=== PATIENT | female | born 1985 | race Caucasian/White ===

== ENCOUNTER → 2022-05-24 14:34 | Outpatient (BNVA) | payer OTHER, BC, SELFPAY | PROVIDERS: Family Provider Registered Nurse; PCP Registered Nurse; Referring Provider Registered Nurse; Visit Provider Nurse Practitioner Family | DX: M25.562 Pain in left knee (principal); M25.572 Pain in left ankle and joints of left foot | CPT/HCPCS: 73560; 73565; 73610 ==

== ENCOUNTER 2023-03-19 14:56 | Emergency (ER) | payer OTHER, BC, SELFPAY ==
[2023-03-19 15:00] VITALS: PULSE 82; TEMP 36.5; O2SAT 100; BMI 36.0
[2023-03-19 15:53] LABS: Basophils # 0.1 10^3/uL (0.0-0.1); Basophils % 0.6 %; Eosinophils # 0.1 10^3/uL (0.0-0.8); Eosinophils % 1.1 %; Hematocrit 34.9 % (37.0-47.0); Hemoglobin 10.6 g/dL (11.5-15.3); Lymphocytes # 2.5 10^3/uL (0.8-4.8); Lymphocytes % 27.2 %; Mean Corpuscular HGB Conc 30.4 g/dL (30.0-36.0); Mean Corpuscular Hemoglobin 23.5 pg (28.0-34.0); Mean Corpuscular Volume 77.2 fl (81-99); Mean Platelet Volume 11.2 fL (7.4-10.4); Monocytes # 0.8 10^3/uL (0.2-0.9); Neutrophils # 5.72 10^3/uL (1.8-7.7); Neutrophils % 61.9 %; Nucleated Red Blood Cells % 0 %; Platelet Count 359 10^3/cmm (130-400); Red Blood Count 4.52 10^6/uL (4.1-5.3); White Blood Count 9.2 10^3/uL (4.0-10.0)
[2023-03-19 16:18] LABS: Alanine Aminotransferase 14 U/L (0-33); Albumin Level 4.2 g/dL (3.5-5.2); Alkaline Phosphatase 93 U/L (35-105); Anion Gap 17.5 (5-19); Aspartate Amino Transferase 15 U/L (0-32); Blood Urea Nitrogen 15 mg/dL (6-20); Carbon Dioxide 22 mmol/L (22-29); Chloride 103 mmol/L (98-107); Globulin 2.7 g/dL (1.3-4.6); Glomerular Filtration Rate 71.3 mL/min (90-130); Glucose 111 mg/dL (65-115); Lipase 59 U/L (13-60); Osmolality Calculated 290 mOsm/kg (285-295); Potassium 3.5 mmol/L (3.5-5.1); Sodium 139 mmol/L (136-145); Total Bilirubin 0.2 mg/dL (0.15-1.2); Total Protein 6.9 g/dL (6.6-8.7)
[2023-03-19 17:33] VITALS: BP 131/86; PULSE 66; TEMP 36.6; O2SAT 100
[2023-03-19 18:30] VITALS: RESP 18
--- NOTE | 2023-03-19 18:37 | USR_ITS ---
PROCEDURE INFORMATION: Exam: US Abdomen, Limited; Right Upper Quadrant Exam date and time: 03/19/2023 7:46 PM Age: 37 years old Clinical indication: Abdominal pain; Patient HX: Ruq pain x 2-3 days. TECHNIQUE: Imaging protocol: Real time ultrasound of the abdomen with image documentation. Limited exam focused on the right upper quadrant. COMPARISON: No relevant prior studies available. FINDINGS: Liver: Unremarkable. Gallbladder: Cholelithiasis without convincing gallbladder wall thickening or pericholecystic fluid. Positive sonographic Leyva's sign, as per the florist helper. This is a nonspecific finding. Biliary ducts: Normal. No stones. No dilation. Pancreas: Unremarkable as visualized. Right kidney: No mass. No definite stones. No hydronephrosis. US/US gall bladder [id number] IMPRESSION: Cholelithiasis without convincing sonographic evidence of acute cholecystitis.
--- NOTE | 2023-03-19 18:49 | ED_ITS ---
HPI - Abdominal Pain General: Chief Complaint: Abdominal Pain Stated Complaint: abd and back pain Time Seen by Provider: 03/19/23 18:34 Source: patient Mode of arrival: ambulatory Limitations: no limitations History of Present Illness: 37-year-old female states she been having abdominal pain since Sunday and is worsened. States epigastric and right upper quadrant does radiate to her back. She states that sharp in nature rates an 8 out of 10 she had 2 episodes of vomiting today she had C-sections no other abdominal surgeries she denies any vaginal bleeding denies any diarrhea constipation. Associated Symptoms: Reports nausea and vomiting; Denies chills, diarrhea, dysuria and fever(s) Review of Systems Const: Denies: fever(s), chills, body aches or change in appetite Eyes: Denies: blurry vision or eye discomfort ENMT: Denies: throat pain or dental pain Card: Denies: chest pain Resp: Denies: dyspnea GI: Reports: abdominal pain, nausea and vomiting; Denies: diarrhea : Denies: dysuria Musc: Denies: neck pain or back pain Skin/Breast: Denies: rash Neuro: Denies: headache(s) Psych: Denies: depression Beck/Lymph: Denies: easy bruising All/Imm: Denies: urticaria PFSH ED 2 PFSH: Surgical History History of dilation and curettage (2006) S/P section (08/31/11) Primary section. Performed by Dr. Malachi Conway [facility] in [place], [place]. S/P section (08/07/14) Repeat section. Performed by Dr. Malachi Conway at [facility] in [place], [place]. Family History Grandmother Breast cancer maternal Family/Other Ovarian cancer maternal aunt Social History Smoking and tobacco status: former smoker Quit status (tobacco): has quit using tobacco Year quit tobacco: 2018 Alcohol intake: never Substance/Drug Use: never Physical Exam Const: COMMON NORMALS: no acute distress, patient oriented x3 and healthy appearing HENMT: COMMON NORMALS: normocephalic and atraumatic HEAD & SCALP: normocephalic and atraumatic Eye: COMMON NORMALS: conjunctivae normal CONJUNCTIVA: Yes conjunctivae normal Neck/C-Spine: COMMON NORMALS: full ROM and supple Chest: COMMONS NORMALS: normal inspection of the chest and normal palpation of entire chest wall Resp: COMMON NORMALS: normal respiratory effort, No retractions, No use of accessory muscles and clear to auscultation bilaterally AUSCULTATION: clear to auscultation bilaterally Cardio: COMMON NORMALS: regular rate, regular rhythm and No murmurs present (Cardio) RATE: regular rate RHYTHM: regular rhythm GI: COMMON NORMALS: Normal to inspection, nondistended, normoactive bowel sounds present, Soft to palpation and no masses PALPATION: Yes Soft to palpation and Yes Tenderness to palpation present (GI) Details: RUQ Extremity: COMMON NORMALS: normal to inspection and full ROM Neuro: COMMON NORMALS: patient oriented x3, moves all extremities and no focal motor deficits Psych: COMMON NORMALS: mental status grossly normal, Normal thought process present and cooperative THOUGHT PROCESS: Normal thought process present Skin: COMMON NORMALS: no rashes or lesions noted and no wounds GENERAL SKIN EXAM: no rashes or lesions noted Course Vital Signs: Vital signs: Vital Signs Temperature 97.8 F 03/19/23 17:33 Pulse Rate 78 03/19/23 20:00 Respiratory Rate 18 03/19/23 20:17 Blood Pressure 131/86 03/19/23 17:33 Pulse Oximetry 98 03/19/23 20:17 Oxygen Delivery Me thod Room Air 03/19/23 17:33 MDM - Abdominal Pain Medical Decision Making Patient presents for abdominal pain likely biliary colic no signs of cholecystitis she feels much improved here after pain meds her exam at discharge is benign no tenderness did speak to Dr. Buchanan she is to follow-up with him we will start her on antibiotics Augmentin along with hydrocodone she is return if worsening she understands agrees to plan. Lab Data 03/19/23 15:32 03/19/23 15:32 Labs/Radiology: Radiology Impressions Gallbladder Ultrasound 03/19/23 18:37 IMPRESSION: Cholelithiasis without convincing sonographic evidence of acute cholecystitis. Laboratory Results WBC 9.2 10^3/uL (4.0-10.0) 03/19/23 15: RBC 4.52 10^6/uL (4.1-5.3) 03/19/23: Hgb 10.6 g/dL (11.5-15.3) L 03/19/23: Hct 34.9 % (37.0-47.0) L 03/19/23: MCV 77.2 fl (81-99) L 03/19/23: MCH 23.5 pg (28.0-34.0) L 03/19/23: MCHC 30.4 g/dL (30.0-36.0) 03/19/23 RDW 15.0 % (12.1-15.1) 03/19/23 Plt Count 359 10^3/cmm (130-400) 03/19/23 MPV 11.2 fL (7.4-10.4) H 03/19/23: Neut % (Auto) 61.9 % 03/19/23: Lymph % (Auto) 27.2 % 03/19/23: [place] % (Auto) 9.0 % 03/19/23: Eos % (Auto) 1.1 % 03/19/23: Baso % (Auto) 0.6 % 03/19/23: Neut # (Auto) 5.72 10^3/uL (1.8-7.7) 03/19/23: Lymph # (Auto) 2.5 10^3/uL (0.8-4.8) 03/19/23: [place] # (Auto) 0.8 10^3/uL (0.2-0.9) 03/19/23: Eos # (Auto) 0.1 10^3/uL (0.0-0.8) 03/19/23: Baso # (Auto) 0.1 10^3/uL (0.0-0.1) 03/19/23: Nucleated RBC % (auto) 0 % 03/19/23: Nucleated RBCs # 0.0 /100WBC 03/19/23: Sodium 139 mmol/L (136-145) 03/19/23 15:32 Potassium 3.5 mmol/L (3.5-5.1) 03/19/23 15:32 Chloride 103 mmol/L (98-107) 03/19/23 15:32 Carbon Dioxide 22 mmol/L (22-29) 03/19/23 15:32 Anion Gap 17.5 (5-19) 03/19/23 15:32 BUN 15 mg/dL (6-20) 03/19/23 15:32 Creatinine 0.9 mg/dL (0.5-0.9) 03/19/23 15:32 GFR Calculation 71.3 mL/min (90-130) L 03/19/23 15:32 Glucose 111 mg/dL (65-115) 03/19/23 15:32 Calculated Osmolality 290 mOsm/kg (285-295) 03/19/23 15:32 Calcium 8.0 mg/dL (8.5-10.5) L 03/19/23 15:32 Total Bilirubin 0.2 mg/dL (0.15-1.2) 03/19/23 15:32 AST 15 U/L (0-32) 03/19/23 15:32 ALT 14 U/L (0-33) 03/19/23 15:32 Alkaline Phosphatase 93 U/L (35-105) 03/19/23 15:32 Total Protein 6.9 g/dL (6.6-8.7) 03/19/23 15:32 Albumin 4.2 g/dL (3.5-5.2) 03/19/23 15:32 Globulin 2.7 g/dL (1.3-4.6) 03/19/23 15:32 Lipase 59 U/L (13-60) 03/19/23 15:32 HCG, Qual Negative (Negative) 03/19/23 15:32 Discharge Plan Discharge Patient Disposition: Home Clinical Impression: Abdominal pain, Cholelithiasis Condition: Stable Prescriptions: New hydrocodone-acetaminophen 5-325 mg tablet 1 tab PO Q6H PRN (Reason: pain) Qty: 14 0RF ondansetron 4 mg tablet,disintegrating 4 mg PO Q6H PRN (Reason: nausea and vomiting) Qty: 14 0RF Augmentin 500-125 mg tablet 1 tab PO BID Qty: 20 0RF No Action Trintellix 20 mg tablet 20 mg PO ONCE Mirena 20 mcg/24 hours (5 yrs) 52 mg intrauterine device 1 device INTRAUTERI ONCE naproxen 500 mg tablet 500 mg PO BID Qty: 60 0RF Discharge Orders: Discharge ED (Routine); Ordered 03/19/23 Ordered By: Vikki Felix Referrals: Gerhard Buchanan DO [Physician] - 1-3 days Virginia Miller FNP [Primary Care Provider] - Discharge Diet: Advance as tolerated Discharge Activity: Resume usual activity Patient Instructions: Biliary Colic (ED), Abdominal Pain (ED), Opioid Safety Coding Level of Care Code ED Transportation Planning Technician for Karl Cabello
[2023-03-19 19:00] VITALS: RESP 16
[2023-03-19 19:39] LABS: HCG, Serum Qual Negative (Negative)
[2023-03-19 20:00] VITALS: PULSE 78; RESP 18; O2SAT 98
[2023-03-19 20:17] VITALS: RESP 18; O2SAT 98
[2023-03-19] MEDS: morphine 4 mg/mL SDV 1 mL IVP (20:17)
[2023-03-19] MEDS: ondansetron 2 mg/ML SDV 2 mL 4 MG IVP (20:17)
[2023-03-19] MEDS: amoxicillin-clav 875-125 mg Tablet 1 TAB PO (21:38)
[2023-03-19] MEDS: HYDROcodone-acetaminophen 5-325 mg Tablet 2 TAB PO (21:38)
--- NOTE | 2023-03-20 11:13 | DCPLANNER ---
Addendum entered by Kalpana Heath 04/18/23 10:19: Patient had a follow up appointment scheduled with general surgery - patient did attend appointment. Addendum entered by Kalpana Heath 03/23/23 10:11: Patient has a follow up appointment scheduled for Monday, April 17, 2023 at 9:[address] Buchanan at general surgery. Original Note: manager union had message to schedule a follow up appointment for patient with general surgery. manager union sent patients information to the front office staff at general surgery. Patients information will be printed and reviewed. Clinic will call patient with appointment information.
== END 2023-03-19 21:39 | disposition home or self-care (01) ==
PROVIDERS: Family Medicine; Emergency Provider Emergency Medicine; PCP Nurse Practitioner Family
DX: K80.20 Calculus of gallbladder without cholecystitis without obstruction (principal); Z87.891 Personal history of nicotine dependence
CPT/HCPCS: 36415; 76705; 80053; 83690; 84703; 85025; 96374; 96375; 99284; J2270; J2405

== ENCOUNTER 2023-05-21 07:54 | Day surgery (SDC) | payer OTHER, BC, SELFPAY ==
[2023-05-18 11:36] VITALS: BMI 36.0
[2023-05-21] VITALS (10 sets, daily range): BP systolic 100–165; BP diastolic 48–90; PULSE 66–76; RESP 10–18; TEMP 36.2–36.4; O2SAT 93–97
[2023-05-21] MEDS: sodium chloride 0.9% 1,000 ML 30 ML IV (08:22)
[2023-05-21 08:30] LABS: OR HCG Qualitative Urine Negative (Negative)
[2023-05-21] MEDS: scopolamine 1.5 Patch 1 PATCH TRANSDERMA (09:40)
[2023-05-21] MEDS: ondansetron 2 mg/ML SDV 2 mL 4 MG IVP ×3 (09:40→13:24)
[2023-05-21] MEDS: diphenhydrAMINE 50 mg/mL SDV 1mL 12.5 MG IVP (09:53)
--- NOTE | 2023-05-21 11:06 | PM.HP ---
Providers/Chief Complaint Primary Care Provider: BLAYNE Recio Chief Complaint: K80.20 History of Present Illness Hedy Phoenix is a 37 year old female Medications/Allergies Home Medications Medication Instructions Recorded Confirmed Last Taken Type levonorgestrel 21 mcg/24 hours (8 1 device intrauterine ONCE 11/06/19 05/18/23 Unknown History yrs) 52 mg intrauterine device (Mirena) bupropion HCl 150 mg tablet,12 hr 150 mg PO DAILY 05/18/23 05/18/23 05/21/23 06:45 History sustained-release (Wellbutrin SR) escitalopram oxalate 20 mg tablet 20 mg PO DAILY 05/18/23 05/18/23 05/21/23 06:45 History (Lexapro) iron 18 mg tablet 65 mg PO DAILY 05/21/23 05/21/23 05/21/23 06:45 History Allergies Allergy/AdvReac Type Severity Reaction Status Date / Time No Known Allergies Allergy Verified 05/18/23 11:31 PFSH Acute PFSH: Surgical History History of dilation and curettage (2006) S/P section (08/31/11) Primary section. Performed by Dr. Malachi Conway [facility] in [place], [place]. S/P section (08/07/14) Repeat section. Performed by Dr. Malachi Conway at [facility] in [place], [place]. Family History Grandmother Breast cancer maternal Family/Other Ovarian cancer maternal aunt Social History Smoking and tobacco status: former smoker Quit status (tobacco): has quit using tobacco Year quit tobacco: 2018 Alcohol intake: never Substance/Drug Use: never Vitals/I&O/Wt Last Vital Signs Temp 97.5 F L 05/21/23 08:11 Pulse 76 05/21/23 08:11 Resp 18 05/21/23 08:11 BP 165/90 05/21/23 08:11 Pulse Ox 97 05/21/23 08:11 O2 Del Method Room Air 05/21/23 08:27 A&P Assessment and plan (1) Symptomatic cholelithiasis: Plan Laparoscopic cholecystectomy The risks and benefits of the procedure, including but not limited to, bleeding, infection, scar, numbness, pain, damage to surrounding structures, damage to common bile duct requiring additional surgery, conversion to an open procedure, were explained to the patient. He is understanding of the risks and wishes to proceed. Attestations Medical Necessity Statement*: Home Coding Level of Care Code Acute Code for [facility] Diagnoses Symptomatic cholelithiasis K80.20
--- NOTE | 2023-05-21 11:28 | P.ANESASSM_ITS ---
Pre-Anesthetic Assessment Height/Weight: Height 1.7 m Weight 104.326 kg Temp Pulse Resp BP Pulse Ox O2 Del Method 97.5 F L 76 18 165/90 97 Room Air 05/21/23 08:11 05/21/23 08:11 05/21/23 08:11 05/21/23 08:11 05/21/23 08:11 05/21/23 08:27 Operation Date: 05/21/23 09:35 Proposed Procedures p [id number] lap marcos K80.20(Not Applicable) - Gerhard Buchanan DO Familial anesthetic complications: none Was Beta Jerman taken within 24 hours: N/A Was Clonidine taken within 24 hours: N/A Last intake: Intake Last Liquid Date 05/20/23 Last Liquid Time 21:00 Last Solid Date 05/20/23 Last Solid Time 19:30 Social No alcohol and No tobacco Exam alert, oriented x 3, clear to auscultation bilaterally and regular rate & rhythm Airway Submandibular: within normal limits Cervical ROM: within normal limits Mallampati: Class II Dentition: full CV/HEM Anemia Metabolic Morbid Obesity Anesthetic Plan ASA status: 2 Anesthesia: General Medications/Allergies Home Medications Medication Instructions Recorded Confirmed Last Taken Type levonorgestrel 21 mcg/24 hours (8 1 device intrauterine ONCE 11/06/19 05/18/23 Unknown History yrs) 52 mg intrauterine device (Mirena) bupropion HCl 150 mg tablet,12 hr 150 mg PO DAILY 05/18/23 05/18/23 05/21/23 06:45 History sustained-release (Wellbutrin SR) escitalopram oxalate 20 mg tablet 20 mg PO DAILY 05/18/23 05/18/23 05/21/23 06:45 History (Lexapro) iron 18 mg tablet 65 mg PO DAILY 05/21/23 05/21/23 05/21/23 06:45 History Allergies Allergy/AdvReac Type Severity Reaction Status Date / Time No Known Allergies Allergy Verified 05/18/23 11:31 Current Medications Generic Name Dose Route Start Last Admin Trade Name Freq PRN Reason Stop Dose Admin Sodium Chloride 1,000 mls @ 30 mls/hr 05/21/23 08:00 05/21/23 08:22 Sodium Chloride 0.9% IV 05/22/23 07:59 30 mls/hr .Q24H MUSA Administration Ondansetron HCl 4 mg 05/21/23 08:00 05/21/23 09:40 Ondansetron 2 Mg/Ml Sdv 2 Ml IVP 4 mg Q5M PRN Administration NAUSEA AND VOMITING PFSH Anesthesia Surgical History History of dilation and curettage (2006) S/P section (08/31/11) Primary section. Performed by Dr. Malachi Conway [facility] in [place], [place]. S/P section (08/07/14) Repeat section. Performed by Dr. Malachi Conway at [facility] in [place], [place]. Family History Grandmother Breast cancer maternal Family/Other Ovarian cancer maternal aunt Social History Smoking and tobacco status: former smoker Quit status (tobacco): has quit using tobacco Year quit tobacco: 2018 Alcohol intake: never Substance/Drug Use: never Data Anesthesia Cardiac Studies: No Data to Display
[2023-05-21] MEDS: ceFAZolin 2,000 MG in sodium chloride 0.9% (plus) 50 ML 100 MG IV (11:52)
[2023-05-21] MEDS: lidocaine-epi 2% 20 mL INJ INJECTION (12:15)
--- NOTE | 2023-05-21 12:33 | P.OP_ITS ---
Operative Report Date of procedure: May 21, 2023 Pre-op diagnosis: Symptomatic cholelithiasis Post-op diagnosis: same Procedure done: Laparoscopic cholecystectomy Implants: None Specimens removed/disposition: Gallbladder Surgeon: Dr. Gerhard Buchanan DO Anesthesia: General Estimated blood loss (mL): 5 Complications: None apparent Brief History: This very pleasant 37-year-old female with symptomatic cholelithiasis. Laparoscopic cholecystectomy was indicated. The risk benefits were explained and documented. Procedure: Patient was wheeled into the operative room and placed on the OR table in a supine position. Abdomen was inspected prepped and draped in usual sterile fashion. Time-out was performed and all present were in agreement. A 15 blade scalp was used to make a stab incision in the left upper quadrant and intra- abdominal insufflation was achieved using a Veress needle. After localizing the tissue incisions were made and a 5 millimeter trocar was placed into the umbilicus as well as 2 in the right upper quadrant. A 12 millimeter trocar was placed in the epigastrium. Gallbladder was grasped and elevated. The triangle of Calot was carefully dissected using blunt dissection and electrocautery until the triangle of Calot clearly identified. The cystic duct was clipped proximally and double clipped distally. The duct was then ligated proximally. The cystic artery was doubly clipped and ligated. The gallbladder was then removed from the liver bed using electrocautery. The gallbladder was removed from the abdomen using an Endo-Catch bag through the epigastric incision. The liver bed was inspected and no bleeding was seen. The abdomen was irrigated and suctioned. All ports removed. Skin was washed and dried. Incisions were closed with 4-0 Monocryl in a subcuticular interrupted fashion. Skin glue was applied. Patient tolerated the procedure well.
[2023-05-21] MEDS: HYDROcodone-acetaminophen 10-325 mg Tablet 1 TAB PO (13:17)
--- NOTE | 2023-05-21 14:31 | ANE.PACU2 ---
Inpatient post-anesthesia follow up: Airway intact: Yes Vital signs: Temperature 97.1 F Pulse Rate 72 Respiratory Rate 18 Blood Pressure 118/78 Pulse Oximetry 94 Oxygen Delivery Me thod Room Air Oxygen Flow Rate 6 Fraction of Inspir ed Oxygen Hydration adequate: Yes Nausea and vomiting: No Pain level: 3 Mental status: Baseline
== END 2023-05-21 14:10 | disposition home or self-care (01) ==
PROVIDERS: Anesthesiology; PCP Nurse Practitioner Family; Visit Provider Surgery
PROC: 0FT44ZZ Resection of Gallbladder, Percutaneous Endoscopic Approach (ICD-10-PCS; CPT 47562; principal; 2023-05-21 09:25)
DX: K80.10 Calculus of gallbladder with chronic cholecystitis without obstruction (principal); Z87.891 Personal history of nicotine dependence; E66.01 Morbid (severe) obesity due to excess calories; Z68.36 Body mass index [BMI] 36.0-36.9, adult
CPT/HCPCS: 47562; 81025; 84703; 88304; J0131; J0690; J1100; J1170; J1200; J2405; J2704; J3010; J3490; J7030

== ENCOUNTER 2024-03-26 06:53 | Outpatient (CLI) | payer OTHER, BC, MEDICAID, SELFPAY ==
--- NOTE | 2024-03-26 07:15 | MRR_ITS ---
PROCEDURE INFORMATION: Exam: MR Left Lower Extremity Other Than Joint Without Contrast; Foot Exam date and time: 03/26/2024 7:17 AM Age: 38 years old Clinical indication: Injury or trauma; Blunt trauma; Left; Injury details: Eval lis franc complex, person fell on foot, PT casted; Additional info: Lisfranc fracture, evaluate lisfranc complex TECHNIQUE: Imaging protocol: Magnetic resonance imaging of the left lower extremity without contrast. Exam focused on the foot. COMPARISON: DX XR foot LT min 3V* [id number] 03/15/2024 4:41 PM FINDINGS: Bones/joints: Nondisplaced chip fracture versus contusion involving the lateral cuboid bone. Redemonstrated comminuted nondisplaced intra-articular fracture of the basilar 4th metatarsal. The metatarsal bases maintain normal relationships with the tarsal bones. LIGAMENTS: Lisfranc ligament: Secondary to limitations related to patient motion artifact and large field of view, there is suboptimal visualization of the Lisfranc ligament complex. Best seen on coronal and axial views, the plantar, dorsal and interosseous components of the Lisfranc ligament are probably intact but demonstrate prominent abnormal intrasubstance signal suggestive of sprains. There is equivocal /minimal diastasis (2.5 mm) between the 1st and 2nd metatarsal base. Findings are compatible with grade 1 Lisfranc injury/sprain of the Lisfranc ligament complex. TENDONS: Flexor tendons of foot: Unremarkable. No evidence of tear. Tibialis posterior tendon: Unremarkable as visualized. Peroneal tendons: Unremarkable as visualized. Extensor tendons of foot: Unremarkable. No evidence of tear. Tibialis anterior tendon: Unremarkable as visualized. Tarsal canal (Sinus tarsi): Unremarkable. Soft tissues: Apws-gn-crerbatt deep soft tissue edema throughout the imaged midfoot and forefoot, notably at the 1st intermetatarsal space. Moderate subcutaneous swelling and edema involving the dorsum of the imaged lateral foot. Plantar fascia: Unremarkable as visualized. MR/MR foot LT wo con* [id number] IMPRESSION: 1. Very limited visualization/evaluation of the Lisfranc ligament complex as described above. Constellation of above detailed findings suggests grade 1 Lisfranc injury/sprain of the Lisfranc ligament complex. 2. Redemonstrated comminuted nondisplaced intra-articular fracture of the basilar 4th metatarsal. 3. Nondisplaced chip fracture versus contusion involving the lateral cuboid bone. 4. Moderate subcutaneous swelling and edema involving the dorsum of the imaged lateral foot.
== END 2024-03-26 06:54 | disposition home or self-care (01) ==
LOC: RAD 06:53
PROVIDERS: PCP Nurse Practitioner Family; Visit Provider Podiatrist Foot & Ankle Surgery
DX: S93.325A Dislocation of tarsometatarsal joint of left foot, initial encounter (principal); S92.215A Nondisplaced fracture of cuboid bone of left foot, initial encounter for closed fracture; X58.XXXA Exposure to other specified factors, initial encounter
CPT/HCPCS: 73718

== ENCOUNTER 2024-04-02 07:34 | Day surgery (SDC) | payer OTHER, SELFPAY ==
[2024-04-02] VITALS (15 sets, daily range): BP systolic 107–157; BP diastolic 53–97; PULSE 69–95; RESP 12–18; TEMP 36.2–36.5; O2SAT 93–100; BMI 34.4
--- NOTE | 2024-04-02 | XR_ITS ---
WS: [id number] Exam: XR foot LT min 3V* [id number] Date/Time of Exam: 04/02/2024 12:00 AM Reason For Exam: JOSH PICS AP and lateral C-arm images of the LEFT foot are obtained. Images were obtained for intraoperative p urposes.
[2024-04-02] MEDS: sodium chloride 0.9% 1,000 ML 30 ML IV (08:03)
[2024-04-02] MEDS: gabapentin 300 mg Capsule PO (08:03)
[2024-04-02] MEDS: acetaminophen 1,000 MG/100 ML PIGGYBACK 400 MG IV (08:03)
[2024-04-02] MEDS: scopolamine 1.5 Patch 1 PATCH TRANSDERMA (08:18)
--- NOTE | 2024-04-02 09:15 | W.PM.OPSUD ---
Surgery/Procedure H&P Update DATE OF PROCEDURE: April 02, 2024 DATE H&P PERFORMED: 03/18/24 H&P UPDATE INFORMATION: I have reviewed H&P completed within last 30 days, I have examined patient prior to procedure, No changes to prior documentation and H&P is in [facility] E[facility] on date indicated PREOP DIAGNOSIS: Left foot Lisfranc injury PLANNED PROCEDURE: Operation Date: 04/02/24 09:15 Proposed Procedures p ORIF Foot ORIF Lisfranc(Left) - Guevara Kent DPM
[2024-04-02 09:27] LABS: OR HCG Qualitative Urine Negative (Negative)
--- NOTE | 2024-04-02 09:29 | ANES.PREANE2 ---
Pre-Anesthetic Assessment Height/Weight: Height 1.7 m Weight 99.79 kg Temp Pulse Resp BP Pulse Ox O2 Del Method 97.2 F L 82 18 157/97 95 Room Air 04/02/24 07:54 04/02/24 07:54 04/02/24 07:54 04/02/24 07:54 04/02/24 07:54 04/02/24 07:55 Preop Diagnosis: Left foot Lisfranc injury Operation Date: 04/02/24 09:15 Proposed Procedures p ORIF Foot ORIF Lisfranc(Left) - Guevara Kent DPM Familial anesthetic complications: None Was Beta Jerman taken within 24 hours: N/A Was Clonidine taken within 24 hours: N/A Last intake: Intake Last Liquid Date 04/01/24 Last Liquid Time 22:00 Last Solid Date 04/01/24 Last Solid Time 22:00 Social No alcohol and No tobacco Exam alert, oriented x 3, clear to auscultation bilaterally and regular rate & rhythm Airway Mallampati: Class II Dentition: full Anesthetic Plan ASA status: 1 Anesthesia: General and Regional (specify below) Risk of > 500 ml blood loss (7ml/kg in children): No Medications/Allergies Home Medications Medication Instructions Recorded Confirmed Last Taken Type levonorgestrel 21 mcg/24 hr (up to 1 device intrauterine ONCE 11/06/19 04/01/24 Unknown History 8 years) 52 mg intrauterine device (Mirena) bupropion HCl 150 mg tablet,12 hr 150 mg PO DAILY 05/18/23 04/01/24 04/01/24 History sustained-release (Wellbutrin SR) sertraline 100 mg tablet (Zoloft) 100 mg PO DAILY 04/01/24 04/01/24 04/01/24 History hydrocodone 5 mg-acetaminophen 325 1 tab PO Q6H PRN pain #28 tabs 04/02/24 Unknown Rx mg tablet Allergies Allergy/AdvReac Type Severity Reaction Status Date / Time No Known Allergies Allergy Verified 04/02/24 07:50 Current Medications Generic Name Dose Route Start Last Admin Trade Name Freq PRN Reason Stop Dose Admin Sodium Chloride 1,000 mls @ 30 mls/hr 04/02/24 07:45 04/02/24 08:03 Sodium Chloride 0.9% IV 04/03/24 07:44 30 mls/hr .Q24H MUSA Administration PFSH Anesthesia Surgical History (Updated 06/19/23 @ 10:52 by Gerhard Buchanan DO) Hx laparoscopic cholecystectomy 05/21/23 Dr. Buchanan S/P section (08/07/14) Repeat section. Performed by Dr. Malachi Conway at [facility] in [place], [place]. S/P section (08/31/11) Primary section. Performed by Dr. Malachi Conway [facility] in [place], [place]. History of dilation and curettage (2006) Family History Grandmother Breast cancer maternal Family/Other Ovarian cancer maternal aunt Social History Smoking and tobacco/nicotine status: former use of tobacco/nicotine Quit status (tobacco/nicotine): has quit using Year quit tobacco: 2018 Alcohol intake: never Substance/Drug Use: never Data Anesthesia Cardiac Studies: No Data to Display
--- NOTE | 2024-04-02 09:29 | ANES.PROC ---
Anesthesia Procedures Procedure/Date: 04/02/24 Nerve Block ^: Nerve Block 1: Main Anesthesia: general anesthesia Time Out Performed: Yes Consent: requested by attending/covering physician, from patient, from other, risks and benefits reviewed and patient agrees to proceed Nerve block location: popliteal (L) Anesthesia monitors applied: pulse oximetry, EKG and BP cuff Nerve block position: supine Anesthetic Used: ropivicaine 0.5% (30 ml) and with decadron (4 mg) Ultrasound used to: recognize landmarks Nerve Stimulator Used?: No Interscalene/Femoral BLK: 4 stimuplex 21 g needle used for position and inplane approach, visualize local anesthetic spread and no vascular puncture identified Injection: neg aspiration of heme Patient Tolerated Procedure: well Complications: none
[2024-04-02] MEDS: ceFAZolin 2,000 MG in sodium chloride 0.9% (plus) 50 ML 100 MG IV (09:33)
--- NOTE | 2024-04-02 10:25 | P.BOP_ITS ---
Date of procedure: 04/02/2024 Surgeon name: Josiah CheekPMarysol Accounts Payable Analyst(s) name(s): Alessandro Procedure(s) performed: Open reduction internal fixation left Lisfranc fracture dislocation Description of findings: Ligamentous fracture of left Lisfranc complex Estimated blood loss: 2 cc Tourniquet time: 20 minutes Specimen(s) removed: None Post-operative diagnosis: Lisfranc fracture dislocation left foot
[2024-04-02] MEDS: fentaNYL 50 mcg/mL INJ 2mL IVP ×2 (10:41→10:54)
[2024-04-02] MEDS: HYDROcodone-acetaminophen 5-325 mg Tablet 1 TAB PO (11:24)
[2024-04-02] MEDS: ondansetron 2 mg/ML SDV 2 mL 4 MG IVP (11:30)
--- NOTE | 2024-04-02 11:55 | ANE.PACU2 ---
Inpatient post-anesthesia follow up: Airway intact: Yes Vital signs: Temperature 97.7 F Pulse Rate 74 Respiratory Rate 16 Blood Pressure 128/58 Pulse Oximetry 96 Oxygen Delivery Me thod Room Air Oxygen Flow Rate 10 Fraction of Inspir ed Oxygen Hydration adequate: Yes Nausea and vomiting: No Pain level: 1 Mental status: Baseline
--- NOTE | 2024-04-02 21:11 | P.OP_ITS ---
Operative Report Date of procedure: April 02, 2024 Pre-op diagnosis: Lisfranc injury left foot Post-op diagnosis: Same Post-op findings: Ligamentous injury of Lisfranc complex left foot Procedure done: Open reduction internal fixation of the left Lisfranc fracture dislocation CPT Implants: Lisfranc tight rope from [employer] Surgeon: Guevara Kent DPM Dry Can Tender: Alessandro Estimated blood loss: 2 cc 20 minutes Complications: None Findings: See above Procedure: Patient is a 38-year-old female that has a history of left foot Lisfranc ligamentous injury. The extent of the injury necessitates open reduction internal fixation to prevent long-term sequela. A lengthy discussion regarding the procedure, including risks and complications has been had with the patient and is noted in the recent clinic note. Written and verbal consent have been obtained. All patient questions have been answered to the patient?s satisfaction. No written or verbal guarantees have been given or implied. The patient has been NPO since midnight. The history has been reviewed and the history and physical is current. The signed consent was confirmed and placed in the patient chart. Patient imaging has been reviewed and is consistent with the diagnosis. Under mild sedation, the patient was brought into the operating room and placed on the table in the supine position. IV antibiotics were given by the anesthesia team as preoperative surgical prophylaxis. General sedation was then performed by the anesthesiateam. Popliteal block was performed by the anesthesia department. A pneumatic tourniquet was then placed about the left thigh. The operative extremity was then prepped and draped in the usual fashion. The extremity was then elevated and exsanguinated before the tourniquet was inflated to 325 mmHg. After inflation, the following procedure was then performed. Attention was directed to the left foot. Under direct fluoroscopy visualization the Lisfranc interval was stressed. There was noted to be diastases and instability of the Lisfranc interval. A 1.5 cm incision was made on the dorsal aspect of the foot along the lateral aspect of the second metatarsal base. Bl unt dissection was carried down through subcutaneous the superficial fascia to the level of the second metatarsal base. Retractors were used to remove vital structures such as the neurovascular bundle and tendons from the operative field. Next a guidewire was driven through the base of the second metatarsal across the Lisfranc interval and through the medial cuneiform. Good positioning of the wire was noted clinically as well as on C-arm imaging. #15 blade was used to make a percutaneous stab incision over the exit point of the wire on the medial aspect of the foot. Blunt dissection was carried down to the level of the medial cuneiform. Next, the guidewire was passed through the foot in its entirety after being attached to the tight rope repair system for Lisfranc ligament. The Lisfranc tight rope was then applied across the Lisfranc interval per the manufacture protocol without incident. This was tensioned down which reduced the Lisfranc interval to an appropriate anatomic position. This was confirmed clinically as well as on C-arm imaging. The buttons were noted to sit flush against periosteum. The Lisfranc interval was stressed once again and was noted to be stable in comparison to preoperative assessment. The incision site was irrigated with copious amounts sterile saline before attention was directed to closure. Deep Boze with 4-0 Vicryl followed by skin closure with 4-0 nylon in horizontal mattress fashion. The tourniquet was let down and good hyperemic response was noted to all digits of the left foot. Incision sites were dressed with Xeroform, 4 x 4 gauze, Kerlix, Diomedes. Patient was placed in a cam boot. The patient tolerated the procedure and anesthesia well and without complication. The patient was transported from the operating room to the trevon very room with vital signs stable and vascular status intact to all digits of the left foot. The patient was given both written and verbal instructions to remain nonweightbearing to the operative extremity, to keep dressings/splint clean, dry and intact and to take pain medication as directed. The patient will follow-up in the outpatient setting at their scheduled appointment. The patient was discharged with my personal number and was instructed to call if any questions or issues should arise. They were discharged home once anesthesia criteria was met.
== END 2024-04-02 11:56 | disposition home or self-care (01) ==
PROVIDERS: PCP Nurse Practitioner Family; Visit Provider Podiatrist Foot & Ankle Surgery
PROC: (CPT 28615; principal; 2024-04-02 09:05)
DX: S93.325A Dislocation of tarsometatarsal joint of left foot, initial encounter (principal); X58.XXXA Exposure to other specified factors, initial encounter; Z87.891 Personal history of nicotine dependence
CPT/HCPCS: 28615; 73630; 76000; 81025; C1713; J0131; J0690; J1100; J2405; J2704; J2795; J3010; J7030

== ENCOUNTER → 2024-04-16 13:32 | Outpatient (BNVA) | payer OTHER, BC, MEDICAID, SELFPAY | PROVIDERS: PCP Nurse Practitioner Family; Visit Provider Podiatrist Foot & Ankle Surgery | DX: S93.322D Subluxation of tarsometatarsal joint of left foot, subsequent encounter; X58.XXXD Exposure to other specified factors, subsequent encounter; Z98.890 Other specified postprocedural states | CPT/HCPCS: 73630 ==

== ENCOUNTER → 2024-05-06 15:34 | Outpatient (BNVA) | payer OTHER, SELFPAY | PROVIDERS: PCP Nurse Practitioner Family; Visit Provider Podiatrist Foot & Ankle Surgery | DX: M79.672 Pain in left foot (principal); S93.322D Subluxation of tarsometatarsal joint of left foot, subsequent encounter; X58.XXXD Exposure to other specified factors, subsequent encounter; Z98.890 Other specified postprocedural states | CPT/HCPCS: 73630 ==

== ENCOUNTER → 2024-05-21 15:02 | Outpatient (BNVA) | payer OTHER, SELFPAY | PROVIDERS: PCP Nurse Practitioner Family; Visit Provider Podiatrist Foot & Ankle Surgery | DX: S93.322D Subluxation of tarsometatarsal joint of left foot, subsequent encounter; Z98.890 Other specified postprocedural states; X58.XXXD Exposure to other specified factors, subsequent encounter | CPT/HCPCS: 73630 ==

== ENCOUNTER → 2024-06-11 13:24 | Outpatient (BNVA) | payer OTHER, SELFPAY | PROVIDERS: PCP Nurse Practitioner Family; Visit Provider Podiatrist Foot & Ankle Surgery | DX: M79.672 Pain in left foot (principal); Z98.890 Other specified postprocedural states | CPT/HCPCS: 73630 ==

== ENCOUNTER → 2024-08-28 13:14 | Outpatient (BNVA) | payer OTHER, SELFPAY | PROVIDERS: PCP Nurse Practitioner Family; Visit Provider Podiatrist Foot & Ankle Surgery | DX: M79.672 Pain in left foot (principal); Z98.890 Other specified postprocedural states | CPT/HCPCS: 73630 ==

== ENCOUNTER 2024-10-14 09:45 | Outpatient (CLI) | payer OTHER, SELFPAY | END 2024-10-14 09:46 | disposition home or self-care (01) | LOC: SPT 09:46 | PROVIDERS: PCP Nurse Practitioner Family; Visit Provider Podiatrist Foot & Ankle Surgery | DX: Z46.89 Encounter for fitting and adjustment of other specified devices (principal); S93.326D Dislocation of tarsometatarsal joint of unspecified foot, subsequent encounter; X58.XXXD Exposure to other specified factors, subsequent encounter; M79.671 Pain in right foot; M79.672 Pain in left foot | CPT/HCPCS: L3030 ==

== ENCOUNTER 2024-11-24 13:45 | Outpatient (CLI) | payer OTHER, SELFPAY ==
--- NOTE | 2024-11-24 13:45 | MRR_ITS ---
PROCEDURE INFORMATION: Exam: MR Left Lower Extremity Other Than Joint Without Contrast; Foot Exam date and time: 11/24/2024 2:08 PM Age: 39 years old Clinical indication: Pain; Foot; Left; Prior surgery; Surgery date: 6+ months; Surgery type: Lisfranc repair surgery 04-02-24; Additional info: Lis franc fracture, possible hardware failure TECHNIQUE: Imaging protocol: Magnetic resonance imaging of the left lower extremity without contrast. Exam focused on the foot. COMPARISON: MR foot LT wo con* [id number] 03/26/2024 7:17 AM FINDINGS: Bones/joints: Lisfranc repair with a C1-M2 endo-button. The dorsal, interosseous and plantar bands of the Lisfranc ligament are predominantly intact. Possible chronic low-grade partial tear of the plantar band. No gross evidence of hardware failure, though artifact in the region of the hardware limits detailed evaluation. CT may be helpful for further detail if clinically warranted. Healing subacute-chronic nondisplaced intra-articular fracture of the base of the 4th metatarsal. Suspected additional subtle avulsive injuries of the plantar aspect of the 2nd and 3rd metatarsals as well as the base of the 1st metatarsal and cuboid, which may be better appreciable by CT. No evidence of acute fracture or malalignment. Soft tissues: No fluid collection or hematoma. Tendons are intact. MR/MR foot LT wo con* [id number] IMPRESSION: 1. Lisfranc repair without evidence of hardware complication.
== END 2024-11-24 13:54 | disposition home or self-care (01) ==
PROVIDERS: PCP Nurse Practitioner Family; Visit Provider Podiatrist Foot & Ankle Surgery
DX: S93.326A Dislocation of tarsometatarsal joint of unspecified foot, initial encounter (principal); Z98.890 Other specified postprocedural states; R93.6 Abnormal findings on diagnostic imaging of limbs; X58.XXXA Exposure to other specified factors, initial encounter
CPT/HCPCS: 73718

== ENCOUNTER 2025-05-10 16:43 | Emergency (ER) | payer OTHER, SELFPAY ==
--- OUTSIDE RECORDS SUMMARY | 2019-08-19 04:00 | XMS_ITS | Continuity of Care Document ---
Author Organization [facility] Address [id number] [address] Phone Care Team Providers Care Fish Drier Name Role Phone Unavailable Unavailable Unavailable Allergies, Adverse Reactions, Alerts Substance Reaction Status Criticality No Known Allergies Active No Inform ation Medications Medication Instructions Dosage Effective Dates (start - stop) Status Comments Hannah 7.5 mg-325 mg tablet take 1 tablet by oral route every 6 hours as needed for breakthrough pain. - Active Substitutions allowed Periogard 0.12 % mouthwash This is an oral rinse. Swish with one capful for 30 seconds then spit out. Twice a day. DO NOT EAT OR DRINK FOR ONE HOUR FOLLOWING. - Active 1 Bottle Substitutions allowed WELLBUTRIN SR (unknown strength) take 1 tablet by oral route 2 times every day Not Available - Active Trintellix 10 mg tablet take 1 tablet by oral route every day at the same time each day 10 MG - Active Adipex-P 37.5 mg tablet take 1 tablet by oral route every day before breakfast 37.5 MG - Active Procedures Procedure Date Removal Of Impacted Tooth Soft Tissue Removal Of Impacted Tooth Partially Bony IV Moderate (conscious) Sedation/analges ia, First 15 Min EDR Approval Note Limited Oral Evaluation Problem Focused EDR Approval Note Limited Oral Evaluation Problem Focused Intraoral Periapical First Film Extraction, Erupted Tooth Or Exposed Sulema t (Elevati Advance Directives Directive Yes / No Effective Date File Name No Information Encounters Encounter Description Practice Location Reason(s) For Visit Diagnoses Date Provider Providers Copied on Encounter [facility], [id number] [place], [place], [id number], [place] tel:[phone] [facility] Encounter for dental exam and cleaning w/o abnormal findings No Information [facility], [id number] [place], [place], [id number], [place] tel:[phone] [facility] Encounter for dental exam and cleaning w/o abnormal findings No Information [facility], [id number] [place], [place], [id number], [place] tel:[phone] [facility] Encounter for dental exam and cleaning w/o abnormal findings No Information Family History Family Member Type Diagnosis Age At Onset No Information Payers Payer name Insurance type Covered libertarian ID Authoriza tion(s) No Information Social History Type Description Quantity Date Captured Comments Alcohol Use Details Caffeine Use Details Unknown Tobacco Use Status No Information Smoking Status No Information Sex Female Sexual Orientation Heterosexual Gender Identity Female Chief Complaint And Reason For Visit No Information Reason For Referral Reason For Referral No Information History Of Present Illness Encounter Date Complaint History Of Prese nt Illness No Information Functional Status Date Functional Assessmen t No Information Instructions Date Instruction Additional Infor mation No Information Assessments Type Assessment Date No Information Patient Care Teams Name Effective Dates (start - stop) Status Members No Information
[2025-05-10 16:46] VITALS: BP 141/81; PULSE 80; RESP 16; TEMP 36.7; O2SAT 98; BMI 37.5
--- OUTSIDE RECORDS SUMMARY | 2025-05-10 16:49 | XMS_ITS | Clinical Summary ---
Author Organization [facility] Address [address] Attn: Epic Prelude ADT [place] [address] Care Team Providers Care Wheat Shipper Name Role Phone Angela Drake DO Primary Care Provider [phone] Allergies No known active allergies Medications multivit with calcium,iron,min (WOMEN'S DAILY MULTIVITAMIN ORAL) Take 1 Tablet by mouth daily. 7 Active Additional Information Patient not taking.Reported on 10/23/2023 docusate sodium (COLACE) 100 mg capsule Take 100 mg by mouth 2 times daily. 3 Active inulin (FIBER GUMMIES ORAL) Take by mouth daily. Active topiramate (Topamax) 200 mg tabletIndication s:Weight gain Take 1 Tablet (200 mg) by mouth daily. 90 Tablet 3 3 Active sertraline (Zoloft) 100 mg tabletIndication s:Severe episode of recurrent major depressive disorder, without psychotic features (CMS/HCC) Take 1 Tablet (100 mg) by mouth daily. 90 Tablet 3 4 Active buPROPion HCL (Wellbutrin XL) 300 mg Extended Release 24 hour tabletIndication s:Weight gain,Severe episode of recurrent major depressive disorder, without psychotic features (CMS/HCC) Take 1 Tablet (300 mg) by mouth daily. 90 Tablet 3 4 Active Phentermine 15 mg CapsuleIndicatio ns:Overweight (BMI 25.0-29.9) Take 1 Capsule (15 mg) by mouth daily. 30 Capsule 2 4 Active ondansetron (ZOFRAN ODT) 4 mg Tablet, Rapid DissolveIndicati ons:Nausea in adult Take 1 Tablet (4 mg) by mouth every 8 hours as needed for Nausea/Emesis. Dissolve tablet on top of tongue, then swallow with saliva. 30 Tablet 11 4 Active Active Problems Problem Noted Date Diagnosed Date Anemia 07/24/2023 Overweight (BMI 25.0-29.9) 11/26/2018 Major depressive disorder with current active ep isode 02/21/2017 Resolved Problems Problem Noted Date Diagnosed Date Resolved Date Obesity (BMI 30.0-34.9) 11/30/2017 07/2 Severe obesity (BMI 35.0-39. 9) with comorbidity 08/01/2017 11/30/2017 Encounters Date Type Department Care Team Description 02/17/2025 External Device Data [facility] ABSTRACTION Provider, Abstract from Last 3 Months Immunizations Immunization Administration Dates Next Due INFLUENZA VACCINE QUADRIVALENT 6 MOS UP IM 09/23 Family History Medical History Relation Name Comments Healthy Brother Heart Disease Father Healthy Sister Relation Name Status Comments Brother Alive Father Alive Mother Alive Sister Alive Social History Tobacco Use Types Packs/Day Years Used Date Smoking Tobacco: Former Cigarettes Q uit: 05/05/2016 Smokeless Tobacco: Never Alcohol Use Standard Drinks/Week Comments No 0 (1 standard drink = 0.6 oz pur e alcohol) Comments No Sex and Gender Information Value Date Recorded Sex Assigned at Not on file Legal Sex Female 4:25 AM TOW PICKER Gender Identity Not on file Sexual Orientation Not on file Last Filed Vital Signs Vital Sign Reading Time Taken Comments Blood Pressure 116/78 02/26/2024 1:51 PM CDT Pulse 92 02/26/2024 1:51 PM CDT Temperature 36.8 C (98.2 F) 02/26/2024 1:51 PM CDT Respiratory Rate 18 10/23/2023 9:08 AM TOW PICKER Oxygen Saturation 97% 02/26/2024 1:51 PM CDT Inhaled Oxygen Concentration - - Weight 103.4 kg (228 lb) 02/26/2024 1:51 PM CDT Height 170.2 cm (5' 7 ) 02/26/2024 1:51 PM CDT Body Mass Index 35.71 02/26/2024 1:51 PM CDT Plan of Treatment Health Maintenance Due Date Last Done Comments DTAP/TDAP/TD VACCINES (1 - Tdap) 2006 HEPATITIS B VACCINES (1 of 3 - 19+ 3-dose series) 2006 Preventative Visit- Commercial 11/05/2024 02/01/2022, 04/04/2017 INFLUENZA VACCINE (#1) 2025 , 09/20/2021, 09/20/2021, Additional history exists PAP SMEAR 04/24/2026 04/24/2023, 03/07, 04/04/2017 CERVICAL CANCER SCREENING 04/24/2028 HPV/Cotest (21-29) 04/24/2028 04/24/2023, 04/04/2017 HPV/Cotest (30-65) 04/24/2028 04/24/2023, 04/04/2017 HPV VACCINES Aged Out No longer eligi ble based on patient's age to complete this topic Procedures Procedure Name Priority Date/Time Associated Diagnosis Comments CERV/VAG CYTO SCREEN PAP W/HPV Routine 04/24/2023 8:36 AM CDT Well woman exam with routine gynecological exam from Last 3 Months or Most Recently Relevant to Health Maintenance Results * CERV/VAG CYTO SCREEN PAP W/HPV (04/24/2023 8:36 AM CDT) CLINICAL INFORMATION [facility] Comment:None given LAST MENSTRUAL PERIOD [facility] Comment:NONE GIVEN PREV PAP: [facility] Comment:NONE GIVEN PREV BX: [facility] Comment:NONE GIVEN SOURCE [facility] Comment:ENDOCERVIX ADEQUACY: [facility] Comment: Satisfactory for evaluation. Endocervical/transformation zone component absent. Age and/or menstrual status not provided PAP INTERP [facility] Comment:Negative for intraep ithelial lesion or malignancy. COMMENT (PAP TEST) [facility] [place] Comment: This Pap test has been evaluated with computer assisted technology. SYSTEMS ARCHITECT: [facility] [place] Comment: BES, CT(ASCP) CT screening location: [place] [address] [place] [address] EXPLANATORY NOTE [facility] Pleitez Comment: EXPLANATORY NOTE: The Pap is a screening test for cervical cancer. It is not a diagnostic test and is subject to false negative and false positive results. It is most reliable when a satisfactory sample, regularly obtained, is submitted with relevant clinical findings and history, and when the Pap result is evaluated along with historic and current clinical information. HPV E6/E7 Not Detected Not Detected [facility] Comment: Methodology: Boxing Trainer-Mediated Amplification This assay detects E6/E7 viral messenger RNA (mRNA) from 14 high-risk HPV types (16,18,31,33,35,39,45,51,52,56,58,59,66,68). Cervical sources are required for HPV testing. If a vaginal source from a patient who has had a total hysterectomy with removal of cervix was submitted, please contact the testing laboratory for alternative testing options. For additional information, please refer to http://education.[employer]/faq/DHD803e6 (This link if provided for information/ educational purposes only.) Test Performed at: [facility] [id number] [id number] [facility] Genital SWAB OF ENDOCERVIX / Unknown 04/24/2023 8:36 AM CDT 04/25/2023 10:27 AM CDT Virginia Miller HEATER INSTALLER PATHOLOGY/CYTOLOGY ORDERAB LES Final Result [facility] [phone] [facility] [id number] [id number] from Last 3 Months or Most Recently Relevant to Health Maintenance Insurance [employer] [place] Care Teams Wheat Shipper Relationship Specialty Start Date End Date Angela Drake DO [address] [place] [phone] PCP - General Family Practice 05/17/20
--- OUTSIDE RECORDS SUMMARY | 2025-05-10 16:49 | XMS_ITS | Clinical Summary ---
Author Organization [facility] Address [address] [place] [address] Phone Care Team Providers Care Clinical Exercise Specialist Name Role Phone Angela Drake Primary Care Provider [phone] Allergies No known active allergies Medications MULTIVIT WITH CALCIUM,IRON,MIN (WOMEN'S DAILY MULTIVITAMIN ORAL) Take 1 Tablet by mouth daily. Active vortioxetine (TRINTELLIX) 20 mg tabletIndications :Major depressive disorder with current active episode, unspecified depression episode severity, unspecified whether recurrent Take 1 Tablet (20 mg) by mouth daily. 30 Tablet 6 05/17/2020 Active baclofen (LIORESAL) 20 mg tabletIndications :Muscle spasm of back Take 1 Tablet (20 mg) by mouth 2 times daily. 60 Tablet 2 05/17/2020 Active Active Problems Problem Noted Date Diagnosed Date Overweight (BMI 25.0-29.9) 11/26/2018 Major depressive disorder with current active ep isode 02/21/2017 Resolved Problems Problem Noted Date Diagnosed Date Resolved Date Obesity (BMI 30.0-34.9) 11/30/201705/06 Severe obesity (BMI 35.0-39. 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 Gender Identity Not on file Sexual Orientation Not on file Last Filed Vital Signs Vital Sign Reading Time Taken Comments Blood Pressure 111/86 05/17/2020 8:53 AM CDT Pulse 78 05/17/2020 8:53 AM CDT Temperature 36.8 C (98.2 F) 05/17/2020 8:53 AM CDT Respiratory Rate 18 05/19/2019 1:16 PM CDT Oxygen Saturation 98% 05/17/2020 8:53 AM CDT Inhaled Oxygen Concentration - - Weight 104.1 kg (229 lb 9.6 oz) 05/17/2020 8:53 AM CDT Height 170.2 cm (5' 7 ) 05/17/2020 8:53 AM CDT Body Mass Index 35.96 05/17/2020 8:53 AM CDT Plan of Treatment Health Maintenance Due Date Last Done Comments DTAP/TDAP/TD VACCINES (1 - Tdap) 2006 HEPATITIS B VACCINES (1 of 3 - 19+ 3-dose series) 2006 PAP SMEAR 04/04/2020 04/04/2017 CERVICAL CANCER SCREENING 04/04/2022 HPV/Cotest (21-29) 04/04/2022 04/04/2017 HPV/Cotest (30-65) 04/04/2022 04/04/2017 Preventative Visit-Managed Medicaid 02/02/2023 02/01/2022, 04/04/2017 INFLUENZA VACCINE (#1) 2025 09/23/2019 HPV VACCINES Aged Out No longer eligi ble based on patient's age to complete this topic Procedures Procedure Name Priority Date/Time Associated Diagnosis Comments CERV/VAG CYTO SCREEN PAP RLFX HPV Routine 04/04/2017 11:27 AM CDT Well woman exam with routine gynecological exam from Last 3 Months or Most Recently Relevant to Health Maintenance Results * CERV/VAG CYTOPATH, THIN PREP IMAGR RFLX HPV (04/04/2017 11:27 AM CDT) CLINICAL INFORMATION SEE COMMENT 04/09/2017 1:56 PM CDT [facility] Comment:Information not prov ided LAST MENSTRUAL PERIOD [id number]/09/2017 1:56 PM CDT [facility] PREV PAP: SEE COMMENT 04/09/2017 1:56 PM CDT [facility] Comment:11/04/14 NORMAL PER PT PREV BX: SEE COMMENT 04/09/2017 1:56 PM CDT [facility] Comment:Information not prov ided SOURCE Endocervix 04/09/2017 1:56 PM CDT [facility] ADEQUACY: SEE COMMENT 04/09/2017 1:56 PM CDT [facility] Comment: Satisfactory for evaluation. Endocervical/transformation zone component present. PAP INTERP SEE COMMENT 04/09/2017 1:56 PM CDT [facility] Comment:Negative for intraep ithelial lesion or malignancy. COMMENT SEE COMMENT 04/09/2017 1:56 PM CDT [facility] Comment: This Pap test has been evaluated with computer assisted technology. INOCULATOR: SEE COMMENT 2016 1:56 PM CDT [facility] Comment: MEF, CT(ASCP) CT screening location: [place] [address] [address] [place] [place] [address] Genital SWAB OF ENDOCERVIX / Unknown Collection / Unknown 04/04/2017 11:27 AM CDT 04/05/2017 11:15 AM CDT Narrative [facility] - 04/09/2017 1:56 PM CDT Performing Organization Information: Site ID: [place] Name: [facility] Address: [facility] [address] [place] [place] [address] Director: Wu Reyes MD Leah Mancia CURTAIN SUPERVISOR PATHOLOGY/CYTOLOGY ORDERABLES Final Result [facility] from Last 3 Months or Most Recently Relevant to Health Maintenance Insurance [facility] MEDICAID Care Teams Clinical Exercise Specialist Relationship Specialty Start Date End Date Angela Drake DO [address] [place] [phone] PCP - General Family Practice 05/17/20
[2025-05-10 17:20] LABS: Hematocrit 40.9 % (36-47); Hemoglobin 13.30 g/dL (11.27-16.99); Mean Corpuscular HGB Conc 32.5 g/dL (30-55); Mean Corpuscular Hemoglobin 26.5 pg (27-33); Mean Corpuscular Volume 81.6 fl (85-98); Nucleated Red Blood Cells % 0 %; Platelet Count 271 10^3/cmm (157-399); Red Blood Count 5.01 10^6/uL (3.85-5.65); White Blood Count 7.38 10^3/uL (3.29-11.43)
[2025-05-10 17:35] LABS: HCG, Serum Qual Negative (Negative)
[2025-05-10 17:36] LABS: Alanine Aminotransferase 25 U/L (0-33); Albumin Level 4.2 g/dL (3.5-5.2); Alkaline Phosphatase 94 U/L (35-105); Anion Gap 17.3 (5-19); Aspartate Amino Transferase 14 U/L (0-32); Blood Urea Nitrogen 15 mg/dL (6-20); Calcium 9.0 mg/dL (8.5-10.5); Carbon Dioxide 20 mmol/L (22-29); Chloride 103 mmol/L (98-107); Creatinine Clr Calc Pharmacy 122.3645; Globulin 2.9 g/dL (1.3-4.6); Glucose 85 mg/dL (65-115); Lipase 38 U/L (13-60); Osmolality Calculated 282 mOsm/kg (285-295); Potassium 4.3 mmol/L (3.5-5.1); Sodium 136 mmol/L (136-145); Total Protein 7.1 g/dL (6.6-8.7)
--- NOTE | 2025-05-10 17:41 | ED_ITS ---
HPI - Abdominal Pain 2 General: Chief Complaint: Abdominal Pain Stated Complaint: rt side low pain Time Seen by Provider: 05/10/25 17:38 Source: patient Mode of arrival: ambulatory Limitations: no limitations History of Present Illness: Patient is a nice 39-year-old female presents to ED today with complaint of right sided abdominal pain over the past 6 days or so. She states when pain first came on it was constant for about 1 to 2 days and now is intermittent. She feels like pain is worse with movements. She has felt incredibly nauseous but has not had any episodes of emesis. She has had diarrhea throughout the course reporting up to 4 stools a day. She has not noticed any blood in her stool. She did have some sweats on days 1 or 2 but these have subsided. She has never had documented fevers. Previous abdominal surgeries include a cholecystectomy. She does feel like pain radiates into her back. No urinary symptoms. MD elicited complaint: abdominal pain Pertinent past history: none Onset (ago): day(s) Pain Consistency: intermittent Location: RUQ and RLQ Severity: moderate Radiation: none Migration to: no migration Exacerbating factors: movement Relieving factors: nothing Associated Symptoms: Reports diarrhea and nausea; Denies chills, dysuria, fever(s), hematochezia, hematuria, melena and vomiting Related Data Home Medications ?Medication ?Instructions ?Recorded ?Confirmed levonorgestrel (Mirena) 1 device intrauterine ONCE 0 11/06/19 05/10/25 bupropion HCl 150 mg tablet,12 hr 150 mg PO DAILY 05/0505/10/25 sustained-release (Wellbutrin SR) sertraline 100 mg tablet (Zoloft) 100 mg PO DAILY 03/0605/10/25 Previous Rx's ?Medication ?Instructions ?Recorded hydrocodone 5 mg-acetaminophen 325 1 tab PO Q6H PRN pa in #28 tabs 04/02/24 mg tablet custom inserts #1 ea 08/28/24 methylprednisolone 4 mg tablets in See Rx Instructions PO PER PKG DIR 08/28/24 a dose pack (Medrol ([place])) #21 ea meloxicam 15 mg tablet 15 mg PO DAILY 30 days #30 t abs 01/22/25 Allergies Allergy/AdvReac Type Severity Reaction Status Date / Time No Known Allergies Allergy Verified 05/10/25 16:49 Review of Systems 2 Const: Denies: fever(s), chills, body aches, fatigue or malaise Card: Denies: chest pain Resp: Denies: dyspnea GI: Reports: abdominal pain, nausea and diarrhea; Denies: vomiting, hematochezia or melena : Denies: flank pain, difficulty voiding, dysuria, urinary frequency or hematuria Musc: Denies: neck pain, back pain, extremity pain or joint swelling Skin/Breast: Denies: rash Neuro: Denies: headache(s), numbness in extremities, weakness in extremities, sensory changes or dizziness PFSH ED 2 PFSH: Surgical History Hx laparoscopic cholecystectomy 05/21/23 Dr. Buchanan S/P section (08/07/14) Repeat section. Performed by Dr. Malachi Conway at [facility] in [place], [place]. S/P section (08/31/11) Primary section. Performed by Dr. Malachi Conway [facility] in [place], [place]. History of dilation and curettage (2006) Family History Grandmother Breast cancer maternal Family/Other Ovarian cancer maternal aunt Social History Smoking and tobacco/nicotine status: never used tobacco/nicotine Quit status (tobacco/nicotine): has quit using Year quit tobacco: 2018 Alcohol intake: never Substance/Drug Use: never Physical Exam 2 Const: COMMON NORMALS: no acute distress, average body habitus, patient oriented x3, no limitations, healthy appearing, alert and well nourished Resp: COMMON NORMALS: normal respiratory effort and clear to auscultation bilaterally AUSCULTATION: clear to auscultation bilaterally Cardio: COMMON NORMALS: regular rate and regular rhythm RATE: regular rate RHYTHM: regular rhythm GI: COMMON NORMALS: Normal to inspection, nondistended, normoactive bowel sounds present, Soft to palpation, No hepatosplenomegaly present and no masses INSPECTION: Yes normal to inspection AUSCULTATION: Yes normoactive bowel sounds PALPATION: Yes Soft to palpation, Yes Tenderness to palpation present (GI) (throughout R side of abdomen) Details: RLQ and RUQ, No Guarding due to palpation present (GI), No Rigid due to palpation and Yes No hepatosplenomegaly present : COMMON NORMALS: Yes no CVA tenderness BLADDER/KIDNEY EXAM: Yes no CVA tenderness Back/Pelvis: COMMON NORMALS: no CVA tenderness, thoracic and lumbar spine normal to inspection, no thoracic nor lumbar tenderness and thoraco-lumbar ROM normal Extremity: GENERAL: Yes normal exam except as noted Neuro: COMMON NORMALS: patient oriented x3 SENSORIUM/ORIENTATION: Yes alert Skin: COMMON NORMALS: no rashes or lesions noted GENERAL SKIN EXAM: no rashes or lesions noted Course 2 Vital Signs: Vital signs: Vital Signs Temperature 98.1 F 05/10/25 16:46 Pulse Rate 75 05/10/25 20:35 Respiratory Rate 17 05/10/25 20:35 Blood Pressure 131/75 05/10/25 20:35 Pulse Oximetry 97 05/10/25 20:35 Oxygen Delivery Me thod Room Air 05/10/25 20:35 MDM - Abdominal Pain Medical Decision Making Patient clinically appears in no acute distress. Her vital signs are stable. Blood work overall is unremarkable. CT scan showing no significant abnormalities. She does have a large osteophyte at L1-L2 resulting in severe spinal canal stenosis. This has nothing to do with her symptoms today. UA is clear. Patient will be encouraged to follow-up with her primary care provider later this week for reevaluation. Return to ED precautions discussed. Medical Records I reviewed the patient's medical records. Lab Data I reviewed the patient's lab results. 05/10/25 17:14 05/10/25 17:14 Labs/Radiology: Radiology Impressions Abdomen/Pelvis CT 05/10/25 18:03 IMPRESSION: 1. No bowel obstruction or inflammatory process associated with the bowel. 2. No free air or significant free fluid in the abdomen or pelvis. 3. No evidence of appendicitis. 4. Large posterior disc osteophyte complex at L1-L2 resulting in severe spinal canal stenosis at this level (series 6, image 45). Laboratory Results WBC 7.38 10^3/uL (3.29-11.43) 05/10/25 17:14 RBC 5.01 10^6/uL (3.85-5.65) 05/10/25 17:14 Hgb 13.30 g/dL (11.27-16.99) 05/10/25 17:14 Hct 40.9 % (36-47) 05/10/25 17:14 MCV 81.6 fl (85-98) L 05/10/25 17:14 MCH 26.5 pg (27-33) L 05/10/25 17:14 MCHC 32.5 g/dL (30-55) 05/10/25 17:14 RDW 14.6 % (12.1-15.1) 05/10/25 17:14 Plt Count 271 10^3/cmm (157-399) 05/10/25 17:14 MPV 11.3 fL (7.4-10.4) H 05/10/25 17:14 Neut % (Auto) 52.6 % 05/10/25 17:14 Lymph % (Auto) 36.7 % 05/10/25 17:14 [place] % (Auto) 8.7 % 05/10/25 17:14 Eos % (Auto) 1.6 % 05/10/25 17:14 Baso % (Auto) 0.3 % 05/10/25 17:14 Neut # (Auto) 3.88 10^3/uL (1.8-7.7) 05/10/25 17:14 Lymph # (Auto) 2.7 10^3/uL (0.8-4.8) 05/10/25 17:14 [place] # (Auto) 0.6 10^3/uL (0.2-0.9) 05/10/25 17:14 Eos # (Auto) 0.1 10^3/uL (0.0-0.8) 05/10/25 17:14 Baso # (Auto) 0.0 10^3/uL (0.0-0.1) 05/10/25 17:14 Nucleated RBC % (auto) 0 % 05/10/25 17:14 Nucleated RBCs # 0.0 /100WBC 05/10/25 17:14 Sodium 136 mmol/L (136-145) 05/10/25 17:14 Potassium 4.3 mmol/L (3.5-5.1) 05/10/25 17:14 Chloride 103 mmol/L (98-107) 05/10/25 17:14 Carbon Dioxide 20 mmol/L (22-29) L 05/10/25 17:14 Anion Gap 17.3 (5-19) 05/10/25 17:14 BUN 15 mg/dL (6-20) 05/10/25 17:14 Creatinine 0.8 mg/dL (0.5-0.9) 05/10/25 17:14 GFR Calculation 80.7 mL/min (90-130) L 05/10/25 17:14 Glucose 85 mg/dL (65-115) 05/10/25 17:14 Calculated Osmolality 282 mOsm/kg (285-295) L 05/10/25 17:14 Calcium 9.0 mg/dL (8.5-10.5) 05/10/25 17:14 Total Bilirubin 0.3 mg/dL (0.15-1.2) 05/10/25 17:14 AST 14 U/L (0-32) 05/10/25 17:14 ALT 25 U/L (0-33) 05/10/25 17:14 Alkaline Phosphatase 94 U/L (35-105) 05/10/25 17:14 Total Protein 7.1 g/dL (6.6-8.7) 05/10/25 17:14 Albumin 4.2 g/dL (3.5-5.2) 05/10/25 17:14 Globulin 2.9 g/dL (1.3-4.6) 05/10/25 17:14 Lipase 38 U/L (13-60) 05/10/25 17:14 HCG, Qual Negative (Negative) 05/10/25 17:14 Urine Color Yellow (Yellow) 05/10/25 20:35 Urine Appearance Clear (CLEAR) 05/10/25 20:35 Urine pH 6.0 (5-7) 05/10/25 20:35 Ur Specific [place] 1.096 (1.005-1.030) H 05/10/25 20:35 Urine Protein Trace (Negative) A 05/10/25 20:35 Urine Glucose (UA) Negative (Normal) 05/10/25 20:35 Urine Ketones Trace (Negative) 05/10/25 20:35 Urine Blood Negative (Negative) 05/10/25 20:35 Urine Nitrate Negative (Negative) 05/10/25 20:35 Urine Bilirubin Negative (Negative) 05/10/25 20:35 Urine Urobilinogen 0.2 mg/dL (Negative) 05/10/25 20:35 Ur Leukocyte Esterase Negative (Negative) 05/10/25 20:35 Urine RBC 0-2 /hpf (0-2) 05/10/25 20:35 Urine WBC 0-5 /hpf (0-5) 05/10/25 20:35 Ur Squamous Epith Cells 0-5 /hpf (0-5) 05/10/25 20:35 Amorphous Sediment Not Reportable 05/10/25 20:35 Urine Bacteria None seen /hpf (NONE) 05/10/25 20:35 Hyaline Casts 0-4 /lpf H 05/10/25 20:35 All radiology interpretation(s) finalized by discharge Discharge Plan Discharge Patient Disposition: Home Clinical Impression: Right-sided abdominal pain of unknown etiology Diarrhea Qualifiers: Diarrhea type: unspecified type Qualified Code(s): R19.7 - Diarrhea, unspecified Condition: Stable Prescriptions: No Action Mirena 20 mcg/24 hours (5 yrs) 52 mg intrauterine device 1 device INTRAUTERI ONCE methylprednisolone [Medrol ([place])] 4 mg tablets,dose pack See Rx Instructions PO PER PKG DIR Qty: 21 0RF Rx Instructions: PO PER PKG DIR (DME) custom inserts See Rx Instructions .Route .MEDSUPPLY Qty: 1 0RF Rx Instructions: As directed to sole supports meloxicam 15 mg tablet 15 mg PO DAILY 30 Days Qty: 30 0RF sertraline [Zoloft] 100 mg Tablet 100 mg PO DAILY hydrocodone-acetaminophen 5-325 mg tablet 1 tab PO Q6H PRN (Reason: pain) Qty: 28 0RF bupropion HCl [Wellbutrin SR] 150 mg Tablet Sustained-Release 12 Hr 150 mg PO DAILY Discharge Orders: Discharge ED (Routine); Ordered 05/10/25 Ordered By: Linda Camejo Referrals: Candace Cast NP [Primary Care Provider, Unknown] Patient Instructions: Abdominal Pain (ED), Patient Portal & [facility] Instructions Activity Restrictions/Additional Instructions: As we discussed, your blood work here was unremarkable. Urine was clear. CT scan showing no acute or emergent findings in your abdomen/pelvis. Recommend you follow-up with primary care later this week for reevaluation. You may return to the emergency department at anytime for any further concerns you may have. I hope you begin to feel better soon. Print Language: Ukrainian Coding Level of Care Code ED [employer] Inspector for Karl Cabello
[2025-05-10 17:49] VITALS: O2SAT 98
--- NOTE | 2025-05-10 18:03 | CTR_ITS ---
PROCEDURE INFORMATION: Exam: CT Abdomen And Pelvis With Contrast Exam date and time: 05/10/2025 6:11 PM Age: 39 years old Clinical indication: Abdominal pain; Localized; Right; Prior surgery; Surgery date: 6+ months; Surgery type: Gb. Csection. Iud; RT sided abd pain with nausea and diarrhea; Additional info: R sided abdominal pain, nausea, diarrhea TECHNIQUE: Imaging protocol: Computed tomography of the abdomen and pelvis with contrast. Radiation optimization: All CT scans at this facility use at least one of these dose optimization techniques: automated exposure control; mA and/or kV adjustment per patient size (includes targeted exams where dose is matched to clinical indication); or iterative reconstruction. Contrast material: OMNI 350; Contrast volume: 100 ml; Contrast route: INTRAVENOUS (IV); COMPARISON: US gall bladder [id number] 03/19/2023 7:46 PM RADIATION DOSE METRICS: Total DLP (mGy-cm): 975.83 FINDINGS: Liver: Normal. No mass. Gallbladder and biliary ducts: The gallbladder is absent. Pancreas: Normal. No ductal dilation. Spleen: Normal. No splenomegaly. Adrenal glands: Normal. No mass. Kidneys and ureters: Normal. No hydronephrosis. Stomach and bowel: Unremarkable. No obstruction. No mucosal thickening. Appendix: No evidence of appendicitis. Intraperitoneal space: Unremarkable. No free air. No significant fluid collection. Vasculature: Unremarkable. No abdominal aortic aneurysm. Lymph nodes: Unremarkable. No enlarged lymph nodes. Urinary bladder: Unremarkable as visualized. Reproductive: There is an IUD in place. Bones/joints: Large posterior disc osteophyte complex at L1-L2 resulting in severe spinal canal stenosis at this level (series 6, image 45). Soft tissues: Unremarkable. CT/CT abdomen pelvis w con* [id number] IMPRESSION: 1. No bowel obstruction or inflammatory process associated with the bowel. 2. No free air or significant free fluid in the abdomen or pelvis. 3. No evidence of appendicitis. 4. Large posterior disc osteophyte complex at L1-L2 resulting in severe spinal canal stenosis at this level (series 6, image 45).
[2025-05-10] MEDS: iohexol 350 mg/mL 500 mL Btl (per mL) IV (18:15)
[2025-05-10 20:35] VITALS: BP 131/75; PULSE 75; RESP 17; O2SAT 97
[2025-05-10 20:49] LABS: Glucose Urine UA Negative (Normal); Nitrate Urine Negative (Negative)
[2025-05-10 20:57] LABS: Add Urine Microscopic? YES
[2025-05-10 21:04] LABS: Specific Gravity, Urine 1.096 (1.005-1.030)
== END 2025-05-10 21:19 | disposition home or self-care (01) ==
PROVIDERS: Emergency Provider Physician Assistant; PCP Nurse Practitioner Family
DX: R10.31 Right lower quadrant pain (principal); R19.7 Diarrhea, unspecified
CPT/HCPCS: 74177; 80053; 81001; 83690; 84703; 85025; 99285; J7030